=== PATIENT | female | born 1970 | race African-American/Black ===

== ENCOUNTER 2023-03-19 18:22 | Inpatient (IN) | payer OTHER ==
[~2023-03-19] VITALS: Ht 167.6 cm; Wt 93.6 kg
[2023-03-19] MEDS ORDERED: SODIUM CHLORIDE 0.9% 1000ML 1,000 ML IV STA (18:48)
[2023-03-19] MEDS ORDERED: KETOROLAC TROMETHAMINE 30 MG/ML VIAL IV ONE (19:00)
[2023-03-19] MEDS ORDERED: ONDANSETRON HCL INJ 2MG/ML 2ML 2 MG/ML VIAL ONE ×2 (19:00→21:44)
[2023-03-19] MEDS ORDERED: ONDANSETRON HCL INJ 2MG/ML 2ML 2 MG/ML VIAL IV ONE (19:00)
[2023-03-19] MEDS ORDERED: FAMOTIDINE 20 MG/2 ML VIAL IV ONE ×2 (19:00→19:01)
[2023-03-19] MEDS ORDERED: KETOROLAC TROMETHAMINE 30 MG/ML VIAL ONE (19:01)
[2023-03-19] MEDS ORDERED: SODIUM CHLORIDE 0.9% 1000ML 1,000 ML ONE (19:01)
[2023-03-19] MEDS ORDERED: IOPAMIDOL 370 MG/ML 100 ML INFUS..BTL INJ ONE (19:25)
[2023-03-19] MEDS ORDERED: TRAMADOL HCL 50 MG TAB PO ONE (20:00)
[2023-03-19] MEDS ORDERED: TRAMADOL HCL 50 MG TAB ONE (20:09)
[2023-03-19] MEDS ORDERED: Morphine 4mg INJECTION 4 MG/ML INJ ONE (21:44)
[2023-03-19] MEDS ORDERED: DIPHENHYDRAMINE HCL INJ 50 MG/ML VIAL IV PRN (21:45)
[2023-03-19] MEDS ORDERED: ENALAPRILAT IV INJ 1.25 MG/ML VIAL IV PRN (21:45)
[2023-03-19] MEDS: Morphine 4mg INJECTION 4 MG/ML INJ IV PRN (22:15)
[2023-03-19] MEDS: LACTATED RINGER'S 1,000 ML IV SCH (23:59)
[2023-03-20] VITALS (9 sets, daily range): BP systolic 96–134; BP diastolic 54–80; PULSE 55–77; RESP 16–20; TEMP 97–98.1; O2SAT 98–100
[2023-03-20] MEDS ORDERED: QULIPTA60 MG PO (00:14)
[2023-03-20] MEDS ORDERED: BRIMONIDINE TART5 ML OU (00:14)
[2023-03-20] MEDS ORDERED: LATANOPROST2.5 ML OU (00:14)
[2023-03-20] MEDS ORDERED: DORZOLAMIDE-TIM10 ML OU (00:14)
[2023-03-20] MEDS ORDERED: RHOPRESSA2.5 ML OU (00:14)
[2023-03-20] MEDS ORDERED: HUMIRA(CF)40 MG/0.1 SQ (00:14)
[2023-03-20] MEDS ORDERED: LEVOXYL175 MCG PO (00:14)
[2023-03-20] MEDS: Morphine 4mg INJECTION 4 MG/ML INJ IV PRN (02:22)
[2023-03-20] MEDS: ONDANSETRON HCL INJ 2MG/ML 2ML 2 MG/ML VIAL IV PRN ×3 (02:23→12:16)
[2023-03-20 06:21] LABS: BASOPHILS # (AUTO) 0.1 (0.0-0.1); BASOPHILS % 1.4 % (0.0-1.0); EOSINOPHILS # (AUTO) 0.1 (0.0-0.4); EOSINOPHILS % 2.7 % (0.0-6.0); HEMATOCRIT 31.2 % (34.2-44.1); HEMOGLOBIN 9.8 g/dL (12.0-16.0); LYMPHOCYTES # (AUTO) 2.4 (1.0-3.2); LYMPHOCYTES % 47.3 % (18.0-39.1); MEAN CORPUSCULAR HEMOGLOBIN 30.9 pg (28-32); MEAN CORPUSCULAR HGB CONC 31.4 g/dL (31-35); MEAN CORPUSCULAR VOLUME 98.4 fL (81-99); MONOCYTES # (AUTO) 0.5 (0.2-0.8); NEUTROPHILS % 39.4 % (38.7-80.0); PLATELET COUNT 184 x10e3/uL (140-360); RED BLOOD COUNT 3.17 x10e6/uL (3.6-5.1); RED CELL DISTRIBUTION WIDTH 11.4 % (11.7-14.4)
[2023-03-20 06:36] LABS: ANION GAP 7.6 mmol/L (8-16); CALCIUM 8.4 mg/dL (8.4-10.2); CREATININE, SERUM 0.72 mg/dL (0.57-1.11); POTASSIUM 3.6 mmol/L (3.5-5.1)
[2023-03-20 07:35] LABS: FERRITIN 49.15 ng/mL (4.63-204.00)
[2023-03-20] MEDS: HYDROMORPHONE 1MG/1ML INJ IV PRN ×2 (08:24→21:25)
[2023-03-20] MEDS: FAMOTIDINE 20 MG/2 ML VIAL IV SCH ×2 (08:24→21:23)
[2023-03-20] MEDS: LACTATED RINGER'S 1,000 ML IV SCH (08:35)
[2023-03-20] MEDS ORDERED: FAMOTIDINE 20 MG/2 ML VIAL IV SCH (09:00)
[2023-03-20] MEDS: ACETAMINOPHEN 1000 MG/100 ML IV PRN ×2 (12:16→17:53)
[2023-03-20] MEDS: DEXTROSE 5%/0.45% SOD CHL 1,000 ML IV SCH ×2 (14:15→21:25)
[2023-03-20] MEDS: ENOXAPARIN SOD INJ 40 MG/0.4 ML SYR SC SCH (17:54)
[2023-03-20] MEDS ORDERED: FLUTICASONE PROPIONATE NASAL SPRAY NS SCH (18:30)
[2023-03-20] MEDS: FLUTICASONE PROPIONATE NASAL SPRAY NS SCH (19:00)
[2023-03-21] VITALS (8 sets, daily range): BP systolic 111–140; BP diastolic 57–80; PULSE 59–75; RESP 16–18; TEMP 97.5–98.3; O2SAT 97–100
[2023-03-21] MEDS: ACETAMINOPHEN 1000 MG/100 ML IV PRN ×3 (00:02→16:56)
[2023-03-21 04:40] LABS: BASOPHILS # (AUTO) 0.1 (0.0-0.1); EOSINOPHILS # (AUTO) 0.1 (0.0-0.4); EOSINOPHILS % 2.5 % (0.0-6.0); HEMATOCRIT 33.8 % (34.2-44.1); HEMOGLOBIN 10.7 g/dL (12.0-16.0); LYMPHOCYTES % 41.2 % (18.0-39.1); MEAN CORPUSCULAR HEMOGLOBIN 30.9 pg (28-32); MEAN CORPUSCULAR HGB CONC 31.7 g/dL (31-35); MEAN CORPUSCULAR VOLUME 97.7 fL (81-99); MONOCYTES # (AUTO) 0.4 (0.2-0.8); MONOCYTES % 7.9 % (4.4-11.3); NEUTROPHILS # (AUTO) 2.3 (2.1-6.9); NEUTROPHILS % 47.2 % (38.7-80.0); PLATELET COUNT 187 x10e3/uL (140-360); RED BLOOD COUNT 3.46 x10e6/uL (3.6-5.1); RED CELL DISTRIBUTION WIDTH 10.8 % (11.7-14.4)
[2023-03-21 05:00] LABS: ALBUMIN 3.1 g/dL (3.5-5.0); ANION GAP 9.5 mmol/L (8-16); CALCIUM 8.5 mg/dL (8.4-10.2); CREATININE, SERUM 0.65 mg/dL (0.57-1.11); MAGNESIUM 1.8 MG/DL (1.3-2.1); POTASSIUM 3.5 mmol/L (3.5-5.1)
[2023-03-21] MEDS: FAMOTIDINE 20 MG/2 ML VIAL IV SCH ×2 (08:49→20:27)
[2023-03-21] MEDS: FLUTICASONE PROPIONATE NASAL SPRAY NS SCH (08:49)
[2023-03-21] MEDS: AZELASTINE HCL 137 MCG NASAL SPRAY NS SCH ×2 (08:49→16:19)
[2023-03-21] MEDS: DEXTROSE 5%/0.45% SOD CHL 1,000 ML IV SCH ×2 (10:15→20:28)
[2023-03-21] MEDS: ENOXAPARIN SOD INJ 40 MG/0.4 ML SYR SC SCH ×2 (16:55→16:56)
[2023-03-21] MEDS: HYDROMORPHONE 1MG/1ML INJ IV PRN (20:27)
[2023-03-22 00:34] VITALS: BP 131/77; PULSE 59; RESP 17; TEMP 97.5; O2SAT 100
[2023-03-22] MEDS: ACETAMINOPHEN 1000 MG/100 ML IV PRN (03:21)
[2023-03-22 04:00] VITALS: BP 133/79; PULSE 65; RESP 16; TEMP 98.3; O2SAT 100
[2023-03-22 05:01] LABS: EOSINOPHILS # (AUTO) 0.1 (0.0-0.4); EOSINOPHILS % 3.3 % (0.0-6.0); HEMATOCRIT 35.3 % (34.2-44.1); LYMPHOCYTES # (AUTO) 1.8 (1.0-3.2); MEAN CORPUSCULAR HEMOGLOBIN 31.2 pg (28-32); MEAN CORPUSCULAR HGB CONC 31.2 g/dL (31-35); MONOCYTES # (AUTO) 0.4 (0.2-0.8); MONOCYTES % 9.8 % (4.4-11.3); NEUTROPHILS # (AUTO) 1.7 (2.1-6.9); NEUTROPHILS % 41.9 % (38.7-80.0); PLATELET COUNT 205 x10e3/uL (140-360); RED BLOOD COUNT 3.53 x10e6/uL (3.6-5.1)
[2023-03-22 05:21] LABS: ALBUMIN 3.1 g/dL (3.5-5.0); ALBUMIN/GLOBULIN RATIO 0.9 (0.8-2.0); ANION GAP 10.7 mmol/L (8-16); CALCIUM 8.5 mg/dL (8.4-10.2); CREATININE, SERUM 0.66 mg/dL (0.57-1.11); MAGNESIUM 1.8 MG/DL (1.3-2.1); POTASSIUM 3.7 mmol/L (3.5-5.1)
[2023-03-22] MEDS: DEXTROSE 5%/0.45% SOD CHL 1,000 ML IV SCH (06:44)
[2023-03-22 08:31] VITALS: BP 138/76; PULSE 61; RESP 17; TEMP 98.1; O2SAT 100
== END 2023-03-22 09:02 | disposition home or self-care (01) | DRG 389 ==
LOC: FSED 18:38 → ERHOLD 21:45 → OBSVTOIN 21:45 → INTOOBSV 21:45 → MED/SURG 23:32 → OBSVTOIN 03-20 18:06
PROVIDERS: ADMIT Internal Medicine; ATTEND Internal Medicine
DX: K56.609 Unspecified intestinal obstruction, unspecified as to partial versus complete obstruction (principal); H20.9 Unspecified iridocyclitis; N20.0 Calculus of kidney; K42.9 Umbilical hernia without obstruction or gangrene; E66.09 Other obesity due to excess calories; Z68.33 Body mass index [BMI] 33.0-33.9, adult; E03.9 Hypothyroidism, unspecified; H40.9 Unspecified glaucoma; G43.109 Migraine with aura, not intractable, without status migrainosus; D64.9 Anemia, unspecified; Z90.49 Acquired absence of other specified parts of digestive tract
CPT/HCPCS: 36415; 74018; 74019; 74177; 80048; 80053; 81003; 82607; 82728; 83540; 83735; 84439; 84443; 84466; 84480; 85025; 99284; G0378; J1170; J1650; J1885; J2270; J2405; J7030; Q9967

== ENCOUNTER 2023-05-07 23:23 | Emergency (ER) | payer OTHER ==
[~2023-05-07] VITALS: Ht 167.6 cm; Wt 81.6 kg
[~2023-05-07 23:23] MED LIST: BRIMONIDINE TART5 ML OU; DORZOLAMIDE-TIM10 ML OU; HUMIRA(CF)40 MG/0.1 SQ; LATANOPROST2.5 ML OU; LEVOXYL175 MCG PO; QULIPTA60 MG PO; RHOPRESSA2.5 ML OU
[2023-05-07] MEDS ORDERED: ONDANSETRON HCL INJ 2MG/ML 2ML 2 MG/ML VIAL IV STA (23:43)
[2023-05-07] MEDS ORDERED: KETOROLAC TROMETHAMINE 30 MG/ML VIAL IV STA (23:43)
[2023-05-07] MEDS ORDERED: SODIUM CHLORIDE 0.9% 1000ML 1,000 ML IV SCH (23:45)
[2023-05-07] MEDS ORDERED: ONDANSETRON HCL INJ 2MG/ML 2ML 2 MG/ML VIAL ONE (23:55)
[2023-05-07] MEDS ORDERED: SODIUM CHLORIDE 0.9% 1000ML 1,000 ML ONE (23:55)
[2023-05-07] MEDS ORDERED: KETOROLAC TROMETHAMINE 30 MG/ML VIAL ONE (23:55)
[2023-05-08] MEDS ORDERED: DOCUSATE SODIU100 MG PO (01:00)
[2023-05-08] MEDS ORDERED: DICYCLOMINE HCL20 MG PO (01:00)
[2023-05-08] MEDS ORDERED: FERROUS SULFAT325 M1 PO (01:00)
[2023-05-08] MEDS ORDERED: ONDANSETRON ODT4 MG PO (01:00)
[2023-05-08] MEDS ORDERED: CEFDINIR300 MG PO (01:09)
[2023-05-08 01:22] VITALS: BP 142/69; PULSE 65; RESP 18; TEMP 97.4; O2SAT 98
== END 2023-05-08 01:22 | disposition home or self-care (01) ==
LOC: FSED 23:28
DX: K56.7 Ileus, unspecified (principal); N39.0 Urinary tract infection, site not specified; N20.0 Calculus of kidney; D64.9 Anemia, unspecified; R11.0 Nausea; E03.9 Hypothyroidism, unspecified; Z79.899 Other long term (current) drug therapy
CPT/HCPCS: 74176; 80048; 80076; 81003; 85025; 96374; 96376; 99284; J1885; J2405; J7030